=== PATIENT | female | born 1945 | race Caucasian/White ===

== ENCOUNTER 2022-02-14 15:27 | Inpatient (IN) | payer MEDICARE, OTHER ==
[~2022-02-14] VITALS: Ht 157.5 cm; Wt 61.2 kg
--- NOTE | 2022-02-14 15:39 | NUR ---
PT SEEN BY , RECORDS EVALUATED BY DR CRANE.
--- NOTE | 2022-02-14 16:53 | NUR ---
PT CLEARED FOR ADMISSION TO MHU. REPORT GIVEN TO RAIL SPLITTER. PT REMAINS CALM AND COOPERATIVE.
[2022-02-14] MEDS ORDERED: LORAZEPAM 0.5 MG TABLET PO PRN (17:30)
[2022-02-14] MEDS ORDERED: ZOLPIDEM 5 MG TABLET PO PRN (17:30)
[2022-02-14] MEDS ORDERED: MAG HYDROX/AL HYDROX/SIMETH 30 ML LIQUID UDC PO PRN (17:30)
[2022-02-14] MEDS ORDERED: MAGNESIUM HYDROXIDE 30 ML LIQUID UDC PO PRN (17:30)
[2022-02-14] MEDS ORDERED: BLOOD SUGAR DIAGNOSTIC 1 EACH STRIP VI ONE (17:45)
--- NOTE | 2022-02-14 19:26 | NUR ---
GPS admission notes: Patient is 77 years old female brought to [facility] ER on a 5150 for GD. Per hold, the patient was delusional, walking up to random residences and knocking on their door. Upon face to face evaluation, patient presented cooperative and calm. Patient received a call from her daughter and became angry and refused to speak to her on the phone. This patient is labile, delusional, and easily escalates. Advisement and the Patient's Rights Handbook were provided. Vital signs were stable and safety strategies are in place.
[2022-02-14 20:06] VITALS: BP 141/88
--- NOTE | 2022-02-14 21:45 | NUR ---
Received the patient walking around the unit into other patients rooms and bothering them. The patient is hyperverbal with tangental thoughts. This insurance writer allowed patient to take a shower.A long period of time passed and the patient would not leave the shower. It took many staff and many prompts to finally get her out. During that time, it was noted that the patients mood escalates easily.
[2022-02-15] MEDS ORDERED: OLANZAPINE 10 MG VIAL IM ONE (00:30)
[2022-02-15] MEDS ORDERED: LORAZEPAM 2 MG/1 ML VIAL IM ONE (00:30)
--- NOTE | 2022-02-15 00:55 | NUR ---
GPS NOTE: The patient has been at the station ,non stop talking ,in a loud threatening and attention seeking manor. The staff is unable to redirect her and when we tried, she became verbally abusive. The patient wondered into other rooms and was disturbing her peers. The patient escalated and was not able to show any self control or any regard for the unit rules or other patients. Many attempts to calm the patient down, redirect or distract her was unsuccessful. This typewriter repairer saw the patient clogging up the toilet in her room with paper, and refused to turn down the lights so her roommate could rest. At one point ,the patient started yelling at the staff and was posturing in a threatening manor. Dr Alex was called and a order was received for a IM injection. The security was called and this typewriter repairer explained the situation and procedure to the patient. The patient was combative for a brief moment , but hands on the patient was less then 30 sec. The VS are stable and being monitored . Right after the Injection,the patient proceeded to yell at the staff in the station for about 10 minutes before calming down and going to her bed. Safety Stratiges are in place at this time.
--- NOTE | 2022-02-15 04:30 | NUR ---
Patient is still acting out, requesting things, urinating on herself after being helped to the bathroom. Patient put in a roldan chair at the station to monitor closely. This patient is alert and oriented ,asking to take another shower. When offered PO medications, the patient became argumentative and paranoid. Safety Stratiges remain in place and continuing to monitor for behavior escalation.
[2022-02-15 07:30] VITALS: BP 136/93
[2022-02-15 08:08] LABS: HEMATOCRIT 39.6 % (31.2-41.9); MEAN CORPUSCULAR HEMOGLOBIN 31.3 uug (24.7-32.8); MEAN CORPUSCULAR VOLUME 93.3 fL (75.5-95.3); PLATELET COUNT (AUTO) 263 K/uL (179-408)
[2022-02-15 08:29] LABS: CREATININE 0.8 mg/dL (0.6-1.3); POTASSIUM 3.9 mmol/L (3.5-5.1)
[2022-02-15 15:58] VITALS: BP 172/82
--- NOTE | 2022-02-15 16:09 | NUR ---
GPS: Nursing Notes: Thought Disorder: Patient is awake and responding to her name, poor impulse control, gets easily irritable when redirected, episode of shouting "I am not taking medications..", calling her daughter leaving her message that she is not going to take medications, labile, overly demanding at times, constantly asking to leave, redirected but stated "I don't belong here.. I am not crazy..", unable to formulate a viable plan for self care, continue to monitor for safety, continue with treatment plan.
[2022-02-15 20:00] VITALS: BP 138/67
[2022-02-15] MEDS: QUETIAPINE FUMARATE 25 MG TABLET PO SCH (20:29)
--- NOTE | 2022-02-16 05:15 | NUR ---
received patient in the room sleeping. no apparent distress noted. remains responsive to verbal stimuli. Patient compliant with medications. patient reminded of the unit rules as she starts to be aggressive toward other staff with her loud voice, patient agrees to comply. Patient at one point states of wanting to get out of here. reminded patient on being on 5150, patient unable to comprehend and continue to verbalize wanting to leave. Patient has 2 moments of disrupting roommate by sitting on roommates bed, patient also peed on the floor. Reminded patient again on the unit rules. Patient not comprehending the instructions, as she is "too cold" wrapping herself with blankets. closely monitored for any escalation of aggressive mood. Safety strategies in place.
[2022-02-16 07:30] VITALS: BP 157/83
[2022-02-16] MEDS: QUETIAPINE FUMARATE 25 MG TABLET PO SCH ×2 (09:00→17:00)
--- NOTE | 2022-02-16 09:00 | NUR ---
Pt. BP has been frequently high. It's 157/83 and pulse 71 now, but it was higher earlier, around 200 systolic. Pt. has no scheduled BP medications or PRN. Chemical Research Worker was reached at 08:40 am and is aware of it. No further orders at this moment.
[2022-02-16] MEDS ORDERED: QUETIAPINE FUMARATE 25 MG TABLET PO SCH ×2 (13:00→21:00)
--- NOTE | 2022-02-16 15:25 | NUR ---
PRINCESS Initial Discharge Note: Pt. is a 77-year-old female who was admitted to [facility] on 02/14/2022 on a 5150 hold for unable to take care of your own food and fci. Pt is currently residing at [address] [place] [address], [facility]. Pt reported she would like to return home where she lives with her son and . PRINCESS spoke to pt's daughter, Roxy Davison ([phone]) who reported she is currently looking for SNF's and interested in SW's and MD's recommendations for pt's discharge plan. Pt is currently refusing SNF's. Roxy also stated she has a court date on Monday, the for conservatorship. PRINCESS will continue to work with pt, family and MD to ensure a safe and proper discharge plan.
[2022-02-16 16:00] VITALS: BP 148/91
[2022-02-16] MEDS: METOPROLOL TARTRATE 25 MG TABLET PO SCH ×2 (16:00→21:09)
--- NOTE | 2022-02-16 16:44 | NUR ---
Received patient awake in the hallway. A/O X 3 to person, place. Pt. is argumentative, demanding, intrusive, refusing Psych medications. Pt. was prescribed Metoprolol 25 mg PO q 12 hours for high BP, will be monitored for effectiveness. Self care. Ambulates without assistance. Active listening provided. Fall and safety precautions implemented.
[2022-02-16 20:00] VITALS: BP 140/68
--- NOTE | 2022-02-16 21:32 | NUR ---
NSG/GPS Patient visible on the unit, observed pacing hallway. Patient refused all psych medication and anti-hypertension medication. Addendum: 02/16/22 at 2137 by MARY JASON RN Patient observed to have labile mood, poor interaction with staff, inappropriate and incoherent exchange of words towards staff.
[2022-02-17 08:00] VITALS: BP 175/99
[2022-02-17] MEDS: ENSURE ENLIVE (VAN) 240 ML LIQUID PO SCH (09:00)
[2022-02-17] MEDS: METOPROLOL TARTRATE 25 MG TABLET PO SCH ×3 (09:14→21:00)
[2022-02-17] MEDS: QUETIAPINE FUMARATE 25 MG TABLET PO SCH ×5 (09:14→21:00)
[2022-02-17] MEDS: AMLODIPINE 5 MG TABLET PO SCH (10:21)
--- NOTE | 2022-02-17 10:45 | NUR ---
Gps/Meringuer- Attending and participates in her group therapy, redirectable , compliant with routine am meds. B/P elevated 152/89 Kade Ibarra DNP in to see patient informed of elevated b/p orders received .
[2022-02-17 16:00] VITALS: BP 132/82
--- NOTE | 2022-02-17 17:15 | NUR ---
Gps/Edger Saw Operator- Daughter was in to visit patient, claimed they waited for a long time to have her mother be accepted in MHU, r/t no Psych.Hosp. in [facility]. Daughter was crying, reassured, claimed she does not want to see her mother ends up in the street again . Informed CT of head was done this pm. patient finally agreed to it .
[2022-02-17 20:00] VITALS: BP 184/100
[2022-02-17] MEDS: DIVALPROEX 250 MG TABLET.DR PO SCH ×2 (20:14→21:00)
[2022-02-18 07:30] VITALS: BP_SYST 132; BP_SYST 175; BP_DIAS 83; BP_DIAS 91
[2022-02-18] MEDS: AMLODIPINE 5 MG TABLET PO SCH ×2 (08:39→08:47)
[2022-02-18] MEDS: METOPROLOL TARTRATE 25 MG TABLET PO SCH ×3 (08:40→21:00)
[2022-02-18] MEDS: ENSURE ENLIVE (VAN) 240 ML LIQUID PO SCH (08:41)
--- NOTE | 2022-02-18 11:38 | NUR ---
PRINCESS CASTAÑEDA Hearing: Pt had 5250 probable cause hearing today and it was postponed by Bill from the Court to February 21 at 3PM.
[2022-02-18 16:33] VITALS: BP 151/77
[2022-02-18] MEDS: DIVALPROEX SPRINKLE 125 MG CAP.SPRINK PO SCH (16:40)
--- NOTE | 2022-02-18 17:00 | NUR ---
Gps/Air Twist Operator- Court Hearing was postponed for monday., patient was informed .Patient was able to talked to the Patient's right advocate this am. Patient refusing to take routine medications, claimed she does not need any medications , stated " you dont have to give me anymore medications, i will not take it from you"
[2022-02-18] MEDS: QUETIAPINE FUMARATE 25 MG TABLET PO SCH (21:00)
[2022-02-18] MEDS: DIVALPROEX 250 MG TABLET.DR PO SCH (21:00)
[2022-02-18 22:21] VITALS: BP 160/83
--- NOTE | 2022-02-19 06:16 | NUR ---
patient continues to refuse her medications, states that she had a conversation with her psychiatrist in the morning. Patient states "I know what I put in my body". patient observed to be territorial and manipulative to staff. easily irritable when being educated about the importance on compliance to medications. 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 patient going in and out of her room. Advise patient to take a rest but refused. closely monitored for any sudden shift of behavior. safety strategies in place.
[2022-02-19 07:30] VITALS: BP 159/85
[2022-02-19] MEDS: DIVALPROEX SPRINKLE 125 MG CAP.SPRINK PO SCH ×2 (08:56→16:52)
[2022-02-19] MEDS: AMLODIPINE 5 MG TABLET PO SCH (08:56)
[2022-02-19] MEDS: METOPROLOL TARTRATE 25 MG TABLET PO SCH ×2 (08:56→21:00)
--- NOTE | 2022-02-19 08:57 | NUR ---
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 Reviewed medications with patient, offered routine am meds. patient starting to get argumentative , claimed she does not need any medications ,she already talked the Doctor per patient. Cole ABDULLAHI in was informed patient still refusing b/p meds., also refusing Psych. med. claimed nothing wrong with her she has her own Doctor from [place] and staff here dont know anything .Straddle Bug Operator unable to reason out with patient, , gets irritable , rude .
[2022-02-19] MEDS: ENSURE ENLIVE (VAN) 240 ML LIQUID PO SCH (09:05)
[2022-02-19 16:00] VITALS: BP 136/74
[2022-02-19 20:34] VITALS: BP 151/80
[2022-02-19] MEDS: QUETIAPINE FUMARATE 25 MG TABLET PO SCH (21:00)
[2022-02-19] MEDS: DIVALPROEX 250 MG TABLET.DR PO SCH (21:00)
--- NOTE | 2022-02-20 06:49 | NUR ---
Patient in the day room watching tv.A&Ox2. Patient refused to take medications. Requesting tylenol however allergic to acetamenophen. unable to reason out with patient as she tends to be argumentative. Encourage patient to rest tonight as she hasn't slept for two days. Patient denies SI. safety strategies in place
[2022-02-20 07:30] VITALS: BP 184/99
[2022-02-20] MEDS: DIVALPROEX SPRINKLE 125 MG CAP.SPRINK PO SCH ×2 (09:00→16:40)
[2022-02-20] MEDS: ENSURE ENLIVE (VAN) 240 ML LIQUID PO SCH (09:00)
[2022-02-20] MEDS: METOPROLOL TARTRATE 25 MG TABLET PO SCH ×2 (09:00→20:18)
[2022-02-20] MEDS: AMLODIPINE 5 MG TABLET PO SCH (09:00)
--- NOTE | 2022-02-20 09:23 | NUR ---
Gps/Radio Repairman- Remains to refused, routine am meds, explained the importance of her medications, patient claimed she does not want to listen, she has own Doctor in [facility] , gives, her Diltazem per pt.Informed patient will asked medical Doctor here if they can order same meds, patient stated"dont bother i dont like the Doctors here" Patient walking around with bunch of wet crampled papers calling it her arts .
[2022-02-20 16:00] VITALS: BP 164/77
[2022-02-20 20:00] VITALS: BP 162/91
[2022-02-20] MEDS: DIVALPROEX 250 MG TABLET.DR PO SCH (20:18)
[2022-02-20] MEDS: QUETIAPINE FUMARATE 25 MG TABLET PO SCH (20:18)
--- NOTE | 2022-02-20 20:48 | NUR ---
Pt received ambulating unit hallway. Easily irritable and labile at times. Pt is paranoid and delusional. Continues to refuse all PO medications.
[2022-02-21 08:00] VITALS: BP 135/73
[2022-02-21] MEDS: ENSURE ENLIVE (VAN) 240 ML LIQUID PO SCH (08:55)
[2022-02-21] MEDS: METOPROLOL TARTRATE 25 MG TABLET PO SCH ×2 (08:55→20:15)
[2022-02-21] MEDS: AMLODIPINE 5 MG TABLET PO SCH (08:55)
[2022-02-21] MEDS: DIVALPROEX SPRINKLE 125 MG CAP.SPRINK PO SCH ×2 (08:55→17:00)
--- NOTE | 2022-02-21 09:40 | NUR ---
GPS: Nursing Notes: Riese Petition: Staff faxed Risaurabh Petition to Court, spoke with [employer], contact center agent - Gita , Gita stated that she received the Risaurabh Petition, continue with treatment plan.
--- NOTE | 2022-02-21 10:09 | NUR ---
GPS: Nursing Notes: Riese Petition: Staff served patient with copy of Riese petition. Explained to patient the definition of a Riese. Patient expressed verbal understanding of Riese hearing. Staff faxed Riese petition to courts at . Placed Riese petition in legal section of chart, continue to monitor for safety, continue with treatment plan.
--- NOTE | 2022-02-21 10:22 | NUR ---
GPS: Nursing Notes: Print Material For Depakote and Seroquel: Staff explained the pros and cons of psych. medications, but continue to refuse her medications, Also, staff provided patient with printed material regarding Depakote and Seroquel, stated "I do not take pills... Do you understand...?", continue to monitor for safety, continue with treatment plan.
--- NOTE | 2022-02-21 13:00 | NUR ---
14 Days [facility] on held.
--- NOTE | 2022-02-21 13:58 | NUR ---
GPS: Nursing Notes: Non-Compliance With Medications: Patient is awake and responding to her name, poor impulse control, poor anger management, gets easily irritable when redirected, did not slept last night, continue to refuse her medications, stated "I do not need them.. I did not take medications for many years..", "The doctor is crazy..", episode of hoarding trash in a paper bag, labile, unpredictable behavior, loud and pressured speech, unable to formulate a viable plan for self care, overly demanding, gets easily angry when her demands are not met immediately, continue with treatment plan.
--- NOTE | 2022-02-21 15:44 | NUR ---
GPS: Nursing Notes: Meli Hearing: Staff informed Dr. Mckee of Meli Hearing date 02/22/22 at 13:30 hours. continue to monitor for safety, continue with treatment plan.
[2022-02-21 16:36] VITALS: BP 151/85
[2022-02-21] MEDS: DIVALPROEX 250 MG TABLET.DR PO SCH (20:15)
[2022-02-21] MEDS: QUETIAPINE FUMARATE 25 MG TABLET PO SCH (20:16)
[2022-02-21 20:43] VITALS: BP 175/86
--- NOTE | 2022-02-22 04:28 | NUR ---
patient is awake all night refused all medication, loud and pressure speech,pacing in the unit.unable to follow redirection . patient with poor impulse control and poor insight irritable and agitated at time.
[2022-02-22 08:00] VITALS: BP 138/69
[2022-02-22] MEDS: DIVALPROEX SPRINKLE 125 MG CAP.SPRINK PO SCH ×2 (08:57→17:00)
[2022-02-22] MEDS: AMLODIPINE 5 MG TABLET PO SCH (08:58)
[2022-02-22] MEDS: ENSURE ENLIVE (VAN) 240 ML LIQUID PO SCH (09:00)
[2022-02-22] MEDS: METOPROLOL TARTRATE 25 MG TABLET PO SCH ×2 (09:00→21:00)
--- NOTE | 2022-02-22 09:32 | NUR ---
GPS: PT REFUSED HER AM MEDICATIONS. EXPLAINED RISK AND BENEFITS. PT DENIES ANY PAIN OR DISCOMFORT. PT A BIT SARCASTIC, ATTENTION SEEKER, DOES NOT FOLLOW INSTRUCTIONS AND EASILY GETS IRRITABLE.
--- NOTE | 2022-02-22 13:54 | NUR ---
GPS: KEYSHA HEARING DONE TODAY AND WAS APPROVED PER PSYCHIATRIST. WILL WAIT FOR ORDER. PT REFUSED AM MEDS THIS AM.
[2022-02-22] MEDS: risperiDONE 1 MG TABLET PO SCH ×2 (14:00→21:00)
--- NOTE | 2022-02-22 15:17 | NUR ---
GPS: CALLED SANDRA HERRERA [phone] TO CONFIRM IF RIESE HEARING TODAY WAS APPROVE. PER PSYCHIATRIST TO WAIT FOR AN ORDER FROM THE HARNESS PLACER, THE RESULT BEFORE GIVING ANY IM MEDS TO PT. LEFT VOICEMAIL MESSAGE TO SANDRA HERRERA NUMBER. WILL NOTIFY PSYCHIATRIST.
[2022-02-22 16:27] VITALS: BP 160/90
--- NOTE | 2022-02-22 17:27 | NUR ---
GPS: RECEIVED A PHONE CALL FROM SANDRA HERRERA, COURT REFEREE THAT THEY APPROVED THE RIESE PETITION FILED BY PSYCHIATRIST. WILL NOTIFY PSYCHIATRIST AND PT.
--- NOTE | 2022-02-22 17:45 | NUR ---
GPS: RISPERDAL 1400 DOSE HOLD AFTER VERIFICATION FROM PSYCHIATRIST, AND LATE CONFIRMATION OF APPROVED RIESE PETITION HEARING DONE TODAY. PT WILL HAVE RISPERDAL DOSE AT 2100. PSYCHIATRIST AND PT MADE AWARE.
--- NOTE | 2022-02-22 17:58 | NUR ---
GPS: PT MADE AWARE OF THE [facility] PETITION APPROVAL. PT WAS SO UPSET WHEN EXPLAINED TO HER IF SHE REFUSED RISPERDAL. EXPLAINED THAT SHE WILL HAVE A RISPERDAL PO AT 2100.
--- NOTE | 2022-02-22 19:30 | NUR ---
GPS: Received pt awake, alert and orientedx2. Pt has flight of ideas . Pt needs reorientation. Pt easily agitated. Will continue to monitor.
[2022-02-22 19:48] VITALS: BP 142/72
[2022-02-22] MEDS: DIVALPROEX 250 MG TABLET.DR PO SCH (21:00)
--- NOTE | 2022-02-22 21:00 | NUR ---
GPS: Pt refused her medications Lopressor 25 mg, Depakote 250 mg, Risperdal 1mg . Explained Risk and benefits. Pt noncompliant and easily agitated. Will continue to monitor.
[2022-02-22] MEDS: OLANZAPINE 10 MG VIAL IM PRN (22:22)
--- NOTE | 2022-02-22 22:22 | NUR ---
GPS: Pt given Zyprexa IM 5mg . Pt is reised for refusal of Risperdal 1mg.
--- NOTE | 2022-02-22 22:55 | NUR ---
Pt in no acute distress. Pt tolerated the medication. Safety provided. Will continue to monitor.
--- NOTE | 2022-02-22 23:00 | NUR ---
GPS: Pt refused medication which are Depokote. Lopressor and Risperdal wasted on Omni-cell and wasted in the medication trash bin with another RN.
--- NOTE | 2022-02-23 06:15 | NUR ---
GPS: Pt slept 5.30 hours. Pt in no acute distress. Pt have illogical thought process. Pt need reorientation and set limits. Pt easily agitated.Prescribed medication given and pt tolerated it well. Safety and comfort provided. All needs are met. Will endorse to incoming nurse for continuity of care.
[2022-02-23 07:30] VITALS: BP 181/108
--- NOTE | 2022-02-23 08:00 | NUR ---
NOTED PATIENT'S B/P IS 181/108, MEDICATION ORDERED PATIENT REFUSED.
[2022-02-23] MEDS: OLANZAPINE 10 MG VIAL IM PRN (08:21)
[2022-02-23] MEDS: ENSURE ENLIVE (VAN) 240 ML LIQUID PO SCH (08:23)
[2022-02-23] MEDS: DIVALPROEX SPRINKLE 125 MG CAP.SPRINK PO SCH ×2 (08:53→16:24)
[2022-02-23] MEDS: AMLODIPINE 5 MG TABLET PO SCH (08:53)
[2022-02-23] MEDS: METOPROLOL TARTRATE 25 MG TABLET PO SCH ×2 (08:53→20:10)
[2022-02-23] MEDS: risperiDONE 1 MG TABLET PO SCH (08:54)
--- NOTE | 2022-02-23 09:30 | NUR ---
Dr. Griffin made aware of patient's B/p is 181/108 NNO.
--- NOTE | 2022-02-23 13:42 | NUR ---
Clinical Social Work Note Spoke with Roxy bragg ([phone]). She is wanting a capacity declaration from Dr Mckee. Advised Dr Mckee of this. They are working with a private deputy commonwealth's attorney to obtain probate conservatorship. Daughter has as an advanced healthcare directive from her mother. Patient's brother is also schizophrenic and lives with patient. Daughter is very anxious and wants a definitive diagnosis on her mother.
[2022-02-23 16:00] VITALS: BP 159/81
[2022-02-23 20:00] VITALS: BP 157/78
[2022-02-23] MEDS: DIVALPROEX 250 MG TABLET.DR PO SCH (20:09)
[2022-02-23] MEDS: risperiDONE 2 MG TABLET PO SCH (20:10)
[2022-02-23 21:26] VITALS: BP 115/73
--- NOTE | 2022-02-23 21:41 | NUR ---
Patient BP at the start of the shift was 157/78 HR 99. Patient took her routine medication including the HTN medication. Dr Mckee made aware, ordered EKG. EKG done, patient was calm and cooperative. Latest BP 115/73 HR 70. Will continue to monitor for any significant changes.
--- NOTE | 2022-02-24 06:37 | NUR ---
No acute distress identified during the shift. No aggressive or combative behavior noted. Patient is pleasant and cooperative with care. Will endorse to the next shift for continuity of care.
[2022-02-24 07:30] VITALS: BP 160/87
[2022-02-24] MEDS: DIVALPROEX SPRINKLE 125 MG CAP.SPRINK PO SCH ×2 (08:34→17:15)
[2022-02-24] MEDS: AMLODIPINE 5 MG TABLET PO SCH (08:35)
[2022-02-24] MEDS: METOPROLOL TARTRATE 25 MG TABLET PO SCH ×2 (08:35→20:34)
[2022-02-24] MEDS: risperiDONE 2 MG TABLET PO SCH ×2 (08:40→20:33)
[2022-02-24] MEDS: ENSURE ENLIVE (VAN) 240 ML LIQUID PO SCH (09:23)
--- NOTE | 2022-02-24 12:45 | NUR ---
GPS: PT ALERT AND ORIENTED X3 DENIES ANY PAIN OR DISCOMFORT. NO AGITATION NOTED AT THIS TIME. PT PLEASANT AND COOPERATIVE WITH ARE AND TOLERATED MEDS GIVEN. DAUGHTER CAME FOR A VISIT AND BROUGHT OA PAPERS AND OTHER DOCUMENTS FOR DR LARA. PT ATTENDED THE GROUP ACTIVITY WITH OTHER PT. ALL NEEDS GIVEN AND ATTENDED TO.
--- NOTE | 2022-02-24 15:22 | NUR ---
Clinical Social Work Note Dr Mckee is aware that daughter left probate conservatorship paperwork with Royer Sykes RN. Spoke with Roxy, patient's daughter ([phone]) and advised her that Dr Mckee will complete this paperwork. DPOA document brought by patient's daughter was placed in the chart.
[2022-02-24 16:45] VITALS: BP 121/66
[2022-02-24 19:52] VITALS: BP 136/71
[2022-02-24] MEDS: DIVALPROEX 250 MG TABLET.DR PO SCH (20:33)
[2022-02-25 07:30] VITALS: BP 148/80
[2022-02-25] MEDS: DIVALPROEX SPRINKLE 125 MG CAP.SPRINK PO SCH ×2 (08:07→16:21)
[2022-02-25] MEDS: risperiDONE 2 MG TABLET PO SCH ×2 (08:07→20:11)
[2022-02-25] MEDS: METOPROLOL TARTRATE 25 MG TABLET PO SCH ×2 (08:08→20:12)
[2022-02-25] MEDS: ENSURE ENLIVE (VAN) 240 ML LIQUID PO SCH (08:08)
[2022-02-25] MEDS: AMLODIPINE 5 MG TABLET PO SCH (08:08)
--- NOTE | 2022-02-25 14:49 | NUR ---
Clinical Social Work Note Dr Mckee completed capacity declaration to declare that patient is not competent to make decisions. Daughter is working on probate conservatorship.
[2022-02-25 15:48] VITALS: BP 116/57
[2022-02-25] MEDS: DIVALPROEX 250 MG TABLET.DR PO SCH (20:11)
[2022-02-25 20:18] VITALS: BP 138/76
--- NOTE | 2022-02-26 06:26 | NUR ---
GPS: Pt.slept poorly last night. Asked if radio script writer should call MD for sleeping pill orders but pt.said "NO". Remains needy and intrusive at times but less. No increased agitation noted. Will continue to re-direct prn.
[2022-02-26 07:36] LABS: HEMATOCRIT 38.7 % (31.2-41.9); MEAN CORPUSCULAR HEMOGLOBIN 31.5 uug (24.7-32.8); MEAN CORPUSCULAR VOLUME 93.3 fL (75.5-95.3); PLATELET COUNT (AUTO) 237 K/uL (179-408)
[2022-02-26 07:55] LABS: BILIRUBIN,TOTAL 0.2 mg/dL (0.2-1.0); CREATININE 0.9 mg/dL (0.6-1.3); POTASSIUM 3.9 mmol/L (3.5-5.1); TOTAL PROTEIN, SERUM 6.8 g/dL (6.4-8.2)
[2022-02-26 08:12] VITALS: BP 148/79
[2022-02-26] MEDS: risperiDONE 1 MG TABLET PO SCH ×2 (08:33→12:17)
[2022-02-26] MEDS: DIVALPROEX SPRINKLE 125 MG CAP.SPRINK PO SCH ×2 (08:33→16:21)
[2022-02-26] MEDS: ENSURE ENLIVE (VAN) 240 ML LIQUID PO SCH (08:34)
[2022-02-26] MEDS: METOPROLOL TARTRATE 25 MG TABLET PO SCH ×2 (08:34→20:04)
[2022-02-26] MEDS: AMLODIPINE 5 MG TABLET PO SCH (08:34)
--- NOTE | 2022-02-26 10:14 | NUR ---
Firearms Report: Systems Lead completed and submitted a [employer] firearms report for 5150 grave disability certifications. A copy of report has been placed in patient chart.
[2022-02-26 16:46] VITALS: BP 130/64
[2022-02-26 20:00] VITALS: BP 143/74
[2022-02-26] MEDS: risperiDONE 2 MG TABLET PO SCH (20:03)
[2022-02-26] MEDS: DIVALPROEX 250 MG TABLET.DR PO SCH (20:03)
[2022-02-27] MEDS: risperiDONE 1 MG TABLET PO SCH ×2 (08:36→12:16)
[2022-02-27] MEDS: DIVALPROEX SPRINKLE 125 MG CAP.SPRINK PO SCH ×2 (08:36→17:33)
[2022-02-27] MEDS: AMLODIPINE 5 MG TABLET PO SCH (08:37)
[2022-02-27] MEDS: METOPROLOL TARTRATE 25 MG TABLET PO SCH ×2 (08:38→20:06)
[2022-02-27 08:40] VITALS: BP 164/76
[2022-02-27] MEDS: ENSURE ENLIVE (VAN) 240 ML LIQUID PO SCH (08:43)
--- NOTE | 2022-02-27 15:56 | NUR ---
patient is AAO x3 able to make needs known, compliant with all medication,denies any SI/HI. patient is paranoia and delusional, with poor insight and judgement ,with min. interaction with other peers, will continue close monitoring.
[2022-02-27 16:40] VITALS: BP 138/84
[2022-02-27] MEDS: DIVALPROEX 250 MG TABLET.DR PO SCH (20:06)
[2022-02-27] MEDS: risperiDONE 2 MG TABLET PO SCH (20:06)
[2022-02-27 20:12] VITALS: BP 140/80
--- NOTE | 2022-02-28 06:56 | NUR ---
GPS: Pt. slept 3 hrs.last night. Currently in dining room area watching tv. Re-directed prn. No increased agitation noted. Will continue to monitor.
[2022-02-28 07:34] VITALS: BP 164/91
[2022-02-28] MEDS: DIVALPROEX SPRINKLE 125 MG CAP.SPRINK PO SCH ×2 (08:33→17:26)
[2022-02-28] MEDS: risperiDONE 1 MG TABLET PO SCH ×2 (08:34→12:40)
[2022-02-28] MEDS: METOPROLOL TARTRATE 25 MG TABLET PO SCH ×2 (08:34→21:07)
[2022-02-28] MEDS: AMLODIPINE 2.5 MG TABLET PO SCH (08:35)
[2022-02-28] MEDS: ENSURE ENLIVE (VAN) 240 ML LIQUID PO SCH (08:36)
--- NOTE | 2022-02-28 16:20 | NUR ---
PRINCESS Family Contact Note: SW called and left a voicemail for pt's daughter, Roxy ([phone]) for a call back regarding pt's discharge plan on 03/01/22.
[2022-02-28 16:46] VITALS: BP 100/50
--- NOTE | 2022-02-28 18:00 | NUR ---
received patient is AAO x3 able to make needs known, compliant with all medication,denies any SI/HI. patient is paranoia and delusional, with poor insight and judgement ,with min. interaction with other peers,visited by friends to celebrate her birthday( her [birth year] is [birth year]) will continue close monitoring.
[2022-02-28 19:49] VITALS: BP 153/83
[2022-02-28] MEDS: risperiDONE 2 MG TABLET PO SCH (21:06)
[2022-02-28] MEDS: DIVALPROEX 250 MG TABLET.DR PO SCH (21:07)
[2022-03-01 07:30] VITALS: BP 171/93
[2022-03-01] MEDS: DIVALPROEX SPRINKLE 125 MG CAP.SPRINK PO SCH ×2 (08:39→17:11)
[2022-03-01] MEDS: AMLODIPINE 2.5 MG TABLET PO SCH (08:40)
[2022-03-01] MEDS: ENSURE ENLIVE (VAN) 240 ML LIQUID PO SCH (08:40)
[2022-03-01] MEDS: METOPROLOL TARTRATE 25 MG TABLET PO SCH ×2 (08:40→20:15)
[2022-03-01] MEDS: risperiDONE 1 MG TABLET PO SCH ×2 (08:40→13:00)
--- NOTE | 2022-03-01 09:20 | NUR ---
PRINCESS Discharge Note: Pt will be discharged [place] [facility] [address] ([phone]) via Ambulance transportation at 1PM. PRINCESS spoke with admin coordinator, Sara at the facility who states they are ready to accept the patient today. Pt is aware and agreeable with discharge plans. Pt is alert and oriented x4, is unable to plan for self-care at this time; however, is willing to accept care at SNF. PRINCESS called and left a voicemail for pts daughter, Roxy ([phone]) regarding pts discharge update to [facility] upon discharge. Prior to discharge, Roxy stated she would like PRINCESS and MD to help with nursing facility options for the pt. PRINCESS contacted and left another voicemail for Roxy with detailed discharge information, contact information, and a request for a call back regarding questions or concerns she may have. Pt denies any suicidal or homicidal ideation. Pt will follow-up at the facility with Psychiatrist, Dr. Mckee and Tour Sales Representative, Dr. Zuniga. Pt presents with calm mood and congruent affect. PHARMACY: [facility] ([phone]) [address] [place] [address].
--- NOTE | 2022-03-01 12:05 | NUR ---
PRINCESS SNF Referral: SW faxed patient's referral packet including: History and Physical, Consultation, Progress Notes, Medication List and Labs to the following facilities for review and possible chcf placement: [facility] [address] [facility] [facility], [address] ([phone]). PRINCESS spoke with admin coordinator, Leanne ([phone]) at the facility who stated she will call the SW with a discharge update today regarding patients status on acceptance for today.
--- NOTE | 2022-03-01 12:11 | NUR ---
PRINCESS Discharge Update Note: Patient's daughter, Roxy ([phone]) called PRINCESS and stated that she does not authorize for her mother to be discharged to [facility]. Roxy requested for PRINCESS to send clinicals to [address], [address] ([phone]). PRINCESS spoke with admin coordinator, Laenne ([phone]) at the facility who stated she will call the SW with a discharge update today regarding patients status on acceptance for today. PRINCESS stated to Roxy she will be informed once PRINCESS has any updates on discharge location.
[2022-03-01 15:30] VITALS: BP 110/59
--- NOTE | 2022-03-01 17:36 | NUR ---
GPS: PT DISCHARGE TODAY WAS CANCELLED AFTER THE DAUGHTER REFUSED TO ACCEPT THE DISCHARGE FACILITY OF THE PT. HOPING FOR A DISCHARGE DATE TOMORROW. PT DENIES ANY PAIN OR DISCOMFORT. PT LIKES WALKING AROUND THE HALLWAY. REDIRECTABLE MOST OF THE TIME. NO AGITATION NOTED. COMPLIANT WITH MEDS. DAUGHTER CAME TO VISIT PT AT LUNCH TIME.
[2022-03-01 19:53] VITALS: BP 146/64
[2022-03-01] MEDS: risperiDONE 2 MG TABLET PO SCH (20:15)
[2022-03-01] MEDS: DIVALPROEX 250 MG TABLET.DR PO SCH (20:15)
--- NOTE | 2022-03-02 05:14 | NUR ---
GPS NOTES; RECEIVED PATIENT IN HER ROOM RESTING, PATIENT APPEARS TO BE PLEASANT AND CHEERFUL WHEN RECEIVED. PATIENT COMPLIANT WITH MEDICATIONS. ABLE TO MAKE NEEDS KNOWN. SET LIMITS TO PATIENTS DEMANDS. PATIENT INTERMITTENTLY SLEEPS DURING SHIFT. SAFETY STRATEGIES LEFT IN PLACE.
[2022-03-02 07:30] VITALS: BP 171/78
[2022-03-02] MEDS: risperiDONE 1 MG TABLET PO SCH ×3 (08:40→18:48)
[2022-03-02] MEDS: AMLODIPINE 2.5 MG TABLET PO SCH (08:41)
[2022-03-02] MEDS: METOPROLOL TARTRATE 25 MG TABLET PO SCH ×2 (08:41→20:58)
[2022-03-02] MEDS: DIVALPROEX SPRINKLE 125 MG CAP.SPRINK PO SCH ×2 (08:41→18:48)
[2022-03-02] MEDS: ENSURE ENLIVE (VAN) 240 ML LIQUID PO SCH (08:42)
--- NOTE | 2022-03-02 11:15 | NUR ---
PRINCESS Family Contact and Discharge Update: Pt's daughter and DPOA, Roxy ([phone]) called PRINCESS and stated that she will not agree to send her mother to any of the accepted facilities as she wants her mother in a good facility. Roxy stated, "I do not like any of these facilities for her and I will appeal for an extended stay if it comes to that because I want her discharged to a nice facility." PRINCESS provided three facilities recommended by and PRINCESS and Roxy declined them all with a site visit per Roxy. She stated she located a memory care called [facility] and she is waiting for their acceptance of the pt. PRINCESS has been in contact with Conrad ([phone]) from the memory care who stated they will be in touch once clinicals are received.
--- NOTE | 2022-03-02 11:52 | NUR ---
Social Work Coordination of Care: SW faxed patient's referral packet including: History and Physical, Consultation, Progress Notes, Medication List and Labs to the following facilities for review and possible senior care placement: [facility] ([phone]) [address] [place] [id number]. PRINCESS spoke with [facility] who stated they have received the patients clinicals and in review.
[2022-03-02 16:00] VITALS: BP 151/75
[2022-03-02 20:00] VITALS: BP 121/70
[2022-03-02] MEDS: risperiDONE 2 MG TABLET PO SCH (20:56)
[2022-03-02] MEDS: DIVALPROEX 250 MG TABLET.DR PO SCH (20:57)
--- NOTE | 2022-03-03 06:06 | NUR ---
Patient slept 4.45 hrs. Compliant with medication. No episodes of agitation during the shift.Will endorse to oncoming shift.
[2022-03-03 07:30] VITALS: BP 159/81
[2022-03-03 08:24] VITALS: BP 159/81
[2022-03-03] MEDS: METOPROLOL TARTRATE 25 MG TABLET PO SCH (08:24)
[2022-03-03] MEDS: AMLODIPINE 2.5 MG TABLET PO SCH (08:24)
[2022-03-03] MEDS: risperiDONE 1 MG TABLET PO SCH ×2 (08:24→13:04)
[2022-03-03] MEDS: DIVALPROEX SPRINKLE 125 MG CAP.SPRINK PO SCH (08:25)
[2022-03-03] MEDS: ENSURE ENLIVE (VAN) 240 ML LIQUID PO SCH (08:25)
--- NOTE | 2022-03-03 09:33 | NUR ---
PRINCESS Discharge Note: Pt will be discharged to [facility] [address] [place] [address] ([phone]) via Ambulance transportation at 1:30PM. PRINCESS spoke with admin coordinator, Conrad ([phone]) at the facility who states they are ready to accept the patient today. Pt is aware and agreeable with discharge plans. Pt is alert and oriented x4, is unable to plan for self-care at this time; however, is willing to accept care at SNF. Pts daughter, Roxy ([phone]) is aware and agreeable of the discharge plan. Pt denies any suicidal or homicidal ideation. Pt will follow-up at the facility with the facilitys Customer Records Division Supervisor assigned at the [facility]. Pt presents with calm mood and congruent affect. PRINCESS scheduled outpatient therapy appointment with [facility] on March 08, 2022 at 11AM via phone session. Per [facility] office, pt will first have a phone consultation and be assigned a therapist and psychiatrist to follow. PHARMACY: [facility] ([phone]) [address], [place] [address].
--- NOTE | 2022-03-03 12:10 | NUR ---
PRINCESS Discharge Note Update: Pt will be discharged to [facility] ([phone]) [address] [place] [address], [place] [address] via [facility] by [facility] at 1:30PM arranged by the assisted living. PRINCESS spoke with admin coordinator, Conrad ([phone]) and Cisco ([phone]) at the facility who states they are ready to accept the patient today. Pt is aware and agreeable with discharge plans. Pt is alert and oriented x4, is unable to plan for self-care at this time; however, is willing to accept care at SNF. Pts daughter, Roxy ([phone]) is aware and agreeable of the discharge plan. Pt denies any suicidal or homicidal ideation. Pt will follow-up at the facility with the facilitys Director Business Management assigned at the [facility]. Pt presents with calm mood and congruent affect. PRINCESS scheduled outpatient therapy appointment with [facility] on March 08, 2022 at 11AM via phone session. Per [facility] office, pt will first have a phone consultation and be assigned a therapist and psychiatrist to follow. PHARMACY: [facility] ([phone]) [address], [place] [address].
--- NOTE | 2022-03-03 12:44 | NUR ---
GPS: PT WILL BE DISCHARGE TODAY TO [facility]. PT ALERT AND ORIENTED X3. DENIES ANY PAIN OR DISCOMFORT. NO SOB NOTED. CALM AND IN CONGRUENT AFFECT. NO AGITATION NOTES. PT EXCITED TO BE TRANSFERRED AND DISCHarge. CALLED [facility] FOR MED ORDER FROM PSYCHIATRIST TO CONTINUE MEDS. REPORTED TO AMI AT THE FACILITY. ALL BELONGINGS GIVEN AND SIGNED.
== END 2022-03-03 13:30 | DRG 885 ==
LOC: ER 15:27 → GPS 16:34
PROVIDERS: ADMIT Psychiatry & Neurology Psychiatry; ATTEND Internal Medicine
DX: F25.0 Schizoaffective disorder, bipolar type (principal); F01.51 Vascular dementia, unspecified severity, with behavioral disturbance; F29 Unspecified psychosis not due to a substance or known physiological condition; Z91.19 Patient's noncompliance with other medical treatment and regimen; E78.5 Hyperlipidemia, unspecified; I10 Essential (primary) hypertension; Z73.6 Limitation of activities due to disability; R53.1 Weakness; Z20.822 Contact with and (suspected) exposure to COVID-19; Z90.710 Acquired absence of both cervix and uterus
CPT/HCPCS: 36415; 70450; 71045; 80164; 85025; 93005; 97161; A4663; J2060; J2358; J3490